=== PATIENT | female | born 1945 | race Caucasian/White ===

== ENCOUNTER 2017-05-11 00:26 | Observation (INO) | payer OTHER ==
[~2017-05-11] VITALS: Ht 152.4 cm; Wt 59.0 kg
[2017-05-11] MEDS ORDERED: MORPHINE SULFATE 4 MG/ML CPJ (NOT FOR IM USE) IV STA (01:23)
[2017-05-11] MEDS ORDERED: NITROGLYCERIN OINT 1GM/INCH UDPKT TD STA (01:23)
[2017-05-11] MEDS ORDERED: ASPIRIN 325MG EC TABLET PO ONE (01:30)
[2017-05-11 01:49] LABS: EOSINOPHILS % 6.2 % (0.0-5.0); HEMATOCRIT. 39.4 % (36.0-48.0); HEMOGLOBIN. 13.5 g/dL (12.0-16.0); LYMPHOCYTES % 19.3 % (20.0-50.0); MEAN CORPUSCULAR HEMOGLOBIN 29.9 pg (28.0-32.0); MEAN CORPUSCULAR VOLUME 87.5 fL (81.0-99.0); MEAN PLATELET VOLUME 8.9 fl (7.4-10.4); MONOCYTES % 6.1 % (2.0-8.0); NEUTROPHILS % 67.4 % (40.0-76.0); PLATELET 198 x1000/uL (130-400); RED BLOOD CELL COUNT 4.51 mill/uL (4.2-5.4); RED CELL DISTRIBUTION WIDTH 13.5 % (11.6-14.6)
[2017-05-11 02:05] LABS: CARBON DIOXIDE 25 mEq/L (21-32); CHLORIDE 107 mEq/L (98-107); TROPONIN I < 0.02 ng/mL (0.00-0.04)
[2017-05-11] MEDS ORDERED: ACETAMINOPHEN 325MG TABLET PO PRN ×2 (10:45→11:00)
[2017-05-11] MEDS ORDERED: HYDROCODONE/ACETAMINOPHEN 5/325MG TABLET PO PRN (11:00)
[2017-05-11] MEDS ORDERED: IPRATROPIUM/ALBUTEROL 0.5-3(2.5)MG/3ML NEB INH PRN (11:00)
[2017-05-11] MEDS ORDERED: ONDANSETRON HCL 4MG/2ML VIAL IV PRN (11:00)
[2017-05-11] MEDS ORDERED: REGADENOSON 0.4 MG/5 ML IV NR (12:00)
[2017-05-11] MEDS: ENOXAPARIN 40MG/0.4ML SYR SUBCUT SCH (12:08)
[2017-05-11] MEDS: AMLODIPINE 5MG TABLET PO SCH (12:15)
[2017-05-11] MEDS ORDERED: REGADENOSON 0.4 MG/5 ML IV ONE (13:17)
[2017-05-11] MEDS: NITROGLYCERIN OINT 1GM/INCH UDPKT TD SCH ×2 (14:49→21:15)
[2017-05-11 15:09] LABS: CARBON DIOXIDE 26 mEq/L (21-32); CHLORIDE 108 mEq/L (98-107); CREATINE KINASE 57 IU/L (26-192); TROPONIN I < 0.02 ng/mL (0.00-0.04)
[2017-05-11 23:45] LABS: CREATINE KINASE 53 IU/L (26-192); TROPONIN I < 0.02 ng/mL (0.00-0.04)
[2017-05-12] MEDS: NITROGLYCERIN OINT 1GM/INCH UDPKT TD SCH ×2 (06:16→14:08)
[2017-05-12 07:07] LABS: BASOPHILS % 0.4 % (0.0-2.0); CARBON DIOXIDE 24 mEq/L (21-32); CHLORIDE 109 mEq/L (98-107); EOSINOPHILS % 5.3 % (0.0-5.0); HEMATOCRIT. 39.6 % (36.0-48.0); HEMOGLOBIN. 13.6 g/dL (12.0-16.0); LYMPHOCYTES % 32.4 % (20.0-50.0); MEAN CORPUSCULAR HEMOGLOBIN 30.1 pg (28.0-32.0); MEAN CORPUSCULAR VOLUME 87.9 fL (81.0-99.0); MEAN PLATELET VOLUME 9.4 fl (7.4-10.4); MONOCYTES % 7.8 % (2.0-8.0); NEUTROPHILS % 54.1 % (40.0-76.0); PLATELET 185 x1000/uL (130-400); RED BLOOD CELL COUNT 4.51 mill/uL (4.2-5.4); RED CELL DISTRIBUTION WIDTH 13.2 % (11.6-14.6)
[2017-05-12 07:18] LABS: HDL CHOLESTEROL 45 mg/dL (40-59); LDL CHOLESTEROL 95 mg/dL (5-100); T4 FREE 0.96 ng/dL (0.76-1.46)
[2017-05-12] MEDS: AMLODIPINE 5MG TABLET PO SCH (08:53)
[2017-05-12] MEDS: ENOXAPARIN 40MG/0.4ML SYR SUBCUT SCH (08:54)
[2017-05-12] MEDS ORDERED: ASPIRIN 81MG EC TABLET PO SCH (09:00)
[2017-05-12] MEDS ORDERED: CLONIDINE 0.1MG TABLET PO NR (16:00)
[2017-05-12 17:25] VITALS: BP 125/75
== END 2017-05-12 19:00 | disposition home or self-care (01) ==
LOC: ER 00:37 → 5WST 03:09 → INTOOBSV 03:09 → ENRESERV 08:19
PROVIDERS: ADMIT Internal Medicine; ATTEND Internal Medicine
DX: I20.0 Unstable angina (principal); F41.9 Anxiety disorder, unspecified; I10 Essential (primary) hypertension; R94.31 Abnormal electrocardiogram [ECG] [EKG]; E87.6 Hypokalemia; Z87.891 Personal history of nicotine dependence; Z91.19 Patient's noncompliance with other medical treatment and regimen
CPT/HCPCS: 36415; 71010; 78452; 80048; 80053; 80061; 82550; 83036; 83690; 83880; 84439; 84443; 84484; 85025; 93005; 93017; 93306; 96372; 96374; 99285; A9500; G0378; J1650; J2270; J2785